=== PATIENT | female | born 1995 | race American Indian/Alaskan Native ===

== ENCOUNTER 2017-02-20 00:04 | Emergency (ER) | payer BC, OTHER ==
[2017-02-20] MEDS ORDERED: Morphine 2 MG/ML Syringe IVPUSH ONE (00:28)
[2017-02-20] MEDS ORDERED: Ondansetron 4 MG/2 ML SDV IV ONE (00:28)
[2017-02-20 00:46] LABS: CHLORIDE,CL 106 mmol/L (101-111); SODIUM,NA 141 mmol/L (135-145)
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
[2017-02-20] MEDS ORDERED: Cyclobenzaprine 10 MG Tab PO ONE (01:58)
[2017-02-20] MEDS ORDERED: Ibuprofen 600 MG Tab ONE (01:58)
[2017-02-20] MEDS ORDERED: Ibuprofen 600 MG Tab PO ONE (01:58)
[2017-02-20] MEDS ORDERED: Cyclobenzaprine 10 MG Tab ONE (01:58)
== END 2017-02-20 02:05 | disposition home or self-care (01) ==
LOC: DL.ED 00:04
DX: M54.5 Low back pain (principal); V89.2XXA Person injured in unspecified motor-vehicle accident, traffic, initial encounter
CPT/HCPCS: 36415; 72128; 72131; 80053; 80305; 81001; 84703; 85025; 85610; 85730; 96374; 96375; 99283; 99284; A9270; G0480; J2270; J2405

== ENCOUNTER 2018-09-25 01:07 | Emergency (ER) | payer BC ==
[2018-09-25] MEDS ORDERED: Sodium Chloride 0.9% 10 ML Syringe FLUSH PRN (01:26)
[2018-09-25] MEDS ORDERED: Lactated Ringers 1,000 ML IV ONE (01:37)
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
[2018-09-25 01:44] LABS: ANION GAP 13.6; CHLORIDE,CL 101 mmol/L (101-111); SODIUM,NA 136 mmol/L (135-145)
== END 2018-09-25 02:53 | disposition home or self-care (01) ==
LOC: DL.ED 01:07
DX: R42 Dizziness and giddiness (principal); F17.210 Nicotine dependence, cigarettes, uncomplicated
CPT/HCPCS: 36415; 80053; 80305; 81003; 81025; 85025; 93005; 96360; 99284; J7120

== ENCOUNTER 2021-05-31 22:06 | Emergency (ER) | payer OTHER ==
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
== END 2021-05-31 22:47 | disposition home or self-care (01) ==
LOC: DL.ED 22:06
DX: S62.356A Nondisplaced fracture of shaft of fifth metacarpal bone, right hand, initial encounter for closed fracture (principal); Y04.0XXA Assault by unarmed brawl or fight, initial encounter
CPT/HCPCS: 29125; 73130-RT; 99284-25

== ENCOUNTER 2023-01-14 10:21 | Inpatient (IN) | payer OTHER, MEDICAID ==
[2023-01-14] MEDS ORDERED: Ondansetron 4 MG/2 ML SDV IVPUSH PRN (10:46)
[2023-01-14] MEDS ORDERED: Lactated Ringers 1,000 ML IV ONE (10:46)
[2023-01-14] MEDS ORDERED: Methylergonovine 0.2 MG/1 ML Amp IM PRN (10:46)
[2023-01-14] MEDS ORDERED: fentaNYL 100 MCG/2 ML SDV IVPUSH PRN (10:46)
[2023-01-14] MEDS ORDERED: Misoprostol 400 MCG (4 X 100 MCG TAB) RECTAL PRN (10:46)
[2023-01-14] MEDS ORDERED: Lidocaine 1% 30 ML SDV INJECT PRN (10:46)
[2023-01-14] MEDS ORDERED: Sodium Chloride 0.9% 10 ML Syringe FLUSH PRN (10:46)
[2023-01-14] MEDS ORDERED: Acetaminophen 325 MG Tab PO PRN (10:46)
[2023-01-14] MEDS ORDERED: Tranexamic Acid 1,000 MG in Sodium Chloride 0.9% 100 ML IV PRN (10:46)
[2023-01-14] MEDS ORDERED: Terbutaline 1 MG/ML SDV SUBCUT ONE (10:46)
[2023-01-14] MEDS ORDERED: Carboprost Tromethamine 250 MCG/1 ML Amp IM PRN (10:46)
[2023-01-14] MEDS ORDERED: Aluminum Hydroxide/Magnesium Hydroxide/Simethicone Susp 30 ML Cup PO PRN (10:46)
[2023-01-14] MEDS ORDERED: Calcium Carbonate 500 MG Tab.Chew PO PRN (10:46)
[2023-01-14] MEDS ORDERED: Lactated Ringers 1,000 ML IV SCH (11:00)
[2023-01-14] MEDS ORDERED: Oxytocin/Normal Saline 30 UNIT/500 ML BAG IV SCH (11:00)
[2023-01-14 11:07] LABS: HEMATOCRIT 40.3 % (37.0-47.0); HEMOGLOBIN 13.5 g/dL (12.0-16.0); MEAN CORPUSCULAR HEMOGLOBIN 28.2 pg (27.0-34.0); MEAN CORPUSCULAR HGB CONC 33.5 g/dL (33.0-35.0); MEAN CORPUSCULAR VOLUME 84.3 fL (80-100); RED BLOOD CELL COUNT 4.78 10^6/uL (4.2-5.4); WHITE BLOOD CELL COUNT,WBC 11.2 10^3/uL (5.0-10.0)
[2023-01-14] MEDS ORDERED: Phenylephrine HCl In 0.9% NaCl 1 MG/10 ML Syringe IVPUSH PRN (12:04)
[2023-01-14] MEDS ORDERED: ePHEDrine 50 MG/ML SDV IVPUSH PRN (12:04)
[2023-01-14] MEDS ORDERED: Ropivacaine 200 MG in Premix Bag 1 BAG EPIDUR SCH (12:15)
[2023-01-14] MEDS ORDERED: Benzocaine/Menthol 20%-0.5% Spray 78 GM Cannister TOP PRN (14:30)
[2023-01-14] MEDS ORDERED: Oxytocin 10 Units/1 ML SDV IM PRN (14:30)
[2023-01-14] MEDS ORDERED: Simethicone 80 MG Tab.Chew PO PRN (14:30)
[2023-01-14] MEDS: Acetaminophen 325 MG Tab PO PRN (18:01)
[2023-01-14] MEDS: Docusate Sodium 100 MG Cap PO PRN (18:01)
[2023-01-14] MEDS: Ibuprofen 800 MG Tab PO PRN (18:02)
[2023-01-15] MEDS: Acetaminophen 325 MG Tab PO PRN ×3 (00:17→14:51)
[2023-01-15] MEDS: Ibuprofen 800 MG Tab PO PRN ×3 (04:55→20:24)
[2023-01-15 06:19] LABS: HEMATOCRIT 36.3 % (37.0-47.0); HEMOGLOBIN 12.1 g/dL (12.0-16.0); MEAN CORPUSCULAR HEMOGLOBIN 28.7 pg (27.0-34.0); MEAN CORPUSCULAR HGB CONC 33.3 g/dL (33.0-35.0); MEAN CORPUSCULAR VOLUME 86.2 fL (80-100); RED BLOOD CELL COUNT 4.21 10^6/uL (4.2-5.4); WHITE BLOOD CELL COUNT,WBC 10.3 10^3/uL (5.0-10.0)
[2023-01-15] MEDS ORDERED: Prenatal Multivitamin with Calcium/Folic Acid/Iron Tab PO SCH (09:00)
[2023-01-15] MEDS: Docusate Sodium 100 MG Cap PO PRN ×2 (09:07→20:24)
[2023-01-16] MEDS: Acetaminophen 325 MG Tab PO PRN (03:54)
[2023-01-16] MEDS: Ibuprofen 800 MG Tab PO PRN (04:22)
== END 2023-01-16 09:15 | disposition home or self-care (01) | DRG 807 ==
LOC: DL.OBCHECK 10:21 → INTOOBSV 11:08 → UNDOADMOB 11:08 → DL.OB 11:08 → OBSVTOIN 11:08 → DL.OB 14:09 → OBSVTOIN 14:09 → UNDODISIN 01-16 09:15
PROVIDERS: ADMIT Family Medicine; ATTEND Family Medicine
PROC: 00HU33Z Insertion of Infusion Device into Spinal Canal, Percutaneous Approach (ICD-10-PCS; principal; 2023-01-14)
PROC: 10907ZC Drainage of Amniotic Fluid, Therapeutic from Products of Conception, Via Natural or Artificial Opening (ICD-10-PCS; principal; 2023-01-14)
PROC: 10E0XZZ Delivery of Products of Conception, External Approach (ICD-10-PCS; principal; 2023-01-14)
PROC: 3E0R3BZ Introduction of Anesthetic Agent into Spinal Canal, Percutaneous Approach (ICD-10-PCS; principal; 2023-01-14)
DX: O99.810 Abnormal glucose complicating pregnancy (principal); Z37.0 Single live birth; Z3A.37 37 weeks gestation of pregnancy
CPT/HCPCS: 01960; 36415; 51702; 59409; 85027; A9270-GY; J2590; J2795; J3490; J7120